=== PATIENT | male | born 1995 | race Caucasian/White ===

== ENCOUNTER 2021-03-12 14:21 | Emergency (ER) | payer OTHER ==
[~2021-03-12] VITALS: Ht 170.2 cm; Wt 84.5 kg
[2021-03-12 14:29] VITALS: BP 119/83
[2021-03-12] MEDS ORDERED: LIDOcaine 1% 30ml preserv. free vial IJ ONE (15:55)
[2021-03-12] MEDS ORDERED: CEPH-585 PO (17:12)
== END 2021-03-12 17:30 | disposition home or self-care (01) ==
LOC: ER 14:22
DX: L60.0 Ingrowing nail (principal); Z79.2 Long term (current) use of antibiotics
CPT/HCPCS: 11730; 99284